=== PATIENT | female | born 1940 | race Two or more races ===

== ENCOUNTER 2019-05-16 13:59 | Outpatient (RCR) | payer MEDICARE | END 2019-05-31 | disposition home or self-care (01) | LOC: WCC 13:59 | DX: I87.2 Venous insufficiency (chronic) (peripheral) (principal); M06.9 Rheumatoid arthritis, unspecified; M32.9 Systemic lupus erythematosus, unspecified; Z90.710 Acquired absence of both cervix and uterus; E78.00 Pure hypercholesterolemia, unspecified; I11.9 Hypertensive heart disease without heart failure; Z79.02 Long term (current) use of antithrombotics/antiplatelets; Z79.899 Other long term (current) drug therapy; Z79.82 Long term (current) use of aspirin | CPT/HCPCS: G0463 ==